=== PATIENT | female | born 1960 | race Hispanic/Latino ===

== ENCOUNTER → 2024-02-01 | Day surgery (SDC) | payer BC ==
[~2024-02-01] MED LIST: DEXAMETHASONE SOD PHOS INJ 4 MG/ML SDV ONE; FAMOTIDINE 20 MG/2 ML VIAL IV ONE; FENTANYL CITRATE/PF 100MCG/2 ML INJ ONE; FISH OIL 1,0001 EAC7 PO; IBUPROFEN400 MG PO; LACTATED RINGER'S 1,000 ML ONE; LEVOTHYROXINE75 MCG PO; LIDOCAINE HCL 2% LOCAL INJ 5 ML SDV VIAL INJ ONE; MAGNESIUM OXID400 MG PO; METOCLOPRAMIDE HCL 10 MG/2ML VIAL ONE; MIDAZOLAM HCL 2 MG/2 ML VIAL ONE; NASAL SPRAY30 M1; OMEPRAZOLE40 MG PO; ONDANSETRON HCL INJ 2MG/ML 2ML 2 MG/ML VIAL ONE; PROPOFOL IV EMULSION 10 MG/ML 20 ML VIAL ONE; VIT A PO; VIT C PO; VIT D PO; VIT K PO; ZYRTEC-D TABLE1 EACH PO
[2024-02-01 11:50] VITALS: BP 104/69; PULSE 65; RESP 16; TEMP 97.4; O2SAT 98
== END | disposition home or self-care (01) ==
LOC: OR 08:19
PROVIDERS: ATTEND Internal Medicine Gastroenterology
DX: R19.5 Other fecal abnormalities (principal); Z86.0100 Personal history of colon polyps, unspecified; K57.30 Diverticulosis of large intestine without perforation or abscess without bleeding; K64.8 Other hemorrhoids; I10 Essential (primary) hypertension; M10.9 Gout, unspecified; Z01.810 Encounter for preprocedural cardiovascular examination; Z79.1 Long term (current) use of non-steroidal anti-inflammatories (NSAID); Z79.899 Other long term (current) drug therapy
CPT/HCPCS: 45378; 93005; J1100; J2003; J2250; J2405; J2704; J2765; J3010; J7121